=== PATIENT | male | born 1975 | race Caucasian/White ===

== ENCOUNTER 2018-05-30 16:59 | Emergency (ER) | payer SELFPAY ==
[~2018-05-30] VITALS: Ht 180.3 cm; Wt 74.8 kg
[2018-05-30 17:30] VITALS: BP 145/89
[2018-05-30] MEDS ORDERED: Tetanus/Diptheria/Pertussis Vaccine 0.5ml Syr IM ONE (17:30)
[2018-05-30] MEDS ORDERED: Bacitracin Oint UD TOPIC ONE (17:30)
--- NOTE | 2018-05-30 17:39 | Emergency Room Report ---
History of Present Illness General Chief Complaint: Laceration Source: Patient Present Illness HPI 43 YO Male presents to the ED c/o left wrist laceration. Tdap unk. cut but floor scraping tool. bleeding managed. not on blood thinning medications. Denies numbness tingling or loss of sensation or gross motor movements of the extremities, incontinence of bowel or bladder. Denies CP, Palpitations, LOC, AMS , dizziness, Changes in Vision, weakness or a sudden severe headache. denies Si/ HI or PSA's pt .reports 8/10 in severity pain, no weakness or inability to move fingers in affected hand, or make first. denies paresthesias. Allergies: Uncoded Allergies: POLLEN (Allergy, Unknown, 05/30/18) Patient History Past Medical History: see triage record Past Surgical History: none Pertinent Family History: none Reviewed Nursing Documentation: PMH: Agreed; PSxH: Agreed Nursing Documentation-PMH Past Medical History: No Stated History Review of Systems All Other Systems: negative except mentioned in HPI Physical Exam Vital Signs Date Time Temp Pulse Resp B/P (MAP) Pulse Ox O2 Delivery O2 Flow Rate FiO2 05/30/18 17:01 98.1 97 18 158/81 97 Room Air 98.1 Sp02 EP Interpretation: reviewed, normal General Appearance: no apparent distress, alert, GCS 15, non-toxic Head: normocephalic, atraumatic Eyes: bilateral eye normal inspection, bilateral eye PERRL ENT: hearing grossly normal, normal voice Neck: full range of motion Respiratory: lungs clear, normal breath sounds, speaking full sentences Cardiovascular #1: regular rate, rhythm Musculoskeletal: back normal, gait/station normal, normal range of motion, non- tender Neurologic: alert, oriented x3, responsive, motor strength/tone normal, sensory intact, speech normal, grossly normal Psychiatric: judgement/insight normal Skin: normal color, no rash, warm/dry, well hydrated, laceration - left wrist laceration approx 3.2 cm in length Lymphatic: no adenopathy Medical Decision Making PA Attestation Dr. gold is my supervising Physician whom patient management has been discussed with. Diagnostic Impression: Primary Impression: Laceration ER Course 43 YO Male presents to the ED c/o left wrist laceration. Tdap unk. cut but floor scraping tool. bleeding managed. not on blood thinning medications. Denies numbness tingling or loss of sensation or gross motor movements of the extremities, incontinence of bowel or bladder. Denies CP, Palpitations, LOC, AMS , dizziness, Changes in Vision, weakness or a sudden severe headache. Denies SI/ HI or PSA's. Ddx considered but are not limited to laceration, tendon injury, cellulitis, amputation Vital signs: are WNL, pt. is afebrile H&PE are most consistent with: left wrist laceration approx 3.2 cm in length ORDERS: none required at this time, the diagnosis is clinical ED INTERVENTIONS: -Tetanus vaccine was administered as pt. vaccination status was unknown. - The wound was copiously irrigated with normal saline, and explored for foreign body for which no FB was found. - pt. is anesthetized with 1%lidocaine - The wound was approximated and closed using [ ] interrupted [ ] Ethilon sutures. -Bacitracin and sterile dressing is applied. Discussed with patient: That we make every effort to approximate the laceration as best as we can so that scarring will be as cosmetically pleasing as possible with our limited cosmetic skill set in the Emergency dept. Regardless of our best efforts there will be scarring after laceration repair. The extent of scarring is unknown at this time. DISCHARGE: At this time pt. is stable for d/c to home. Will provide printed patient care instructions, and any necessary prescriptions. Care plan and follow up instructions have been discussed with the patient prior to discharge. Last Vital Signs Date Time Temp Pulse Resp B/P (MAP) Pulse Ox O2 Delivery O2 Flow Rate FiO2 05/30/18 17:01 98.1 97 18 158/81 97 Room Air 98.1 Disposition: HOME, SELF-CARE Condition: Stable Scripts Acetaminophen* (TYLENOL EXTRA STRENGTH*) 500 Mg Tablet 500 MG ORAL Q6H, #20 TAB 0 Refills Prov: Cyndy Velez 05/30/18 Bacitracin/Polymyxin B Sulfate (BACITRACIN-POLYMYXIN OINTMENT) 28.35 Gm Oint...g. 1 APPLIC TP BID, #22 GM Prov: Cyndy Velez 05/30/18 Cephalexin* (KEFLEX*) 500 Mg Capsule 500 MG ORAL EVERY 12 HOURS for 7 Days, #14 CAP 0 Refills Prov: Cyndy Velez 05/30/18 Patient Instructions: Laceration Care, Adult Additional Instructions: Take medications as directed. SUTURES SHOULD BE REMOVED IN 7-10 DAYS* Follow up with a Primary Care Provider in 3-5 days, even if your symptoms have resolved. --Please review list of primary care clinics, if you do not already have a primary care provider Return sooner to ED if new symptoms occur, or current symptoms become worse. - Please note that this Emergency Department Report was dictated using [employer] sawer technology software, occasionally this can lead to erroneous entry secondary to interpretation by the dictation equipment. Cyndy Velez May 30, 2018 17:39
[2018-05-30] MEDS ORDERED: Lidocaine 1% Plain 30 ml INJ ONE (17:45)
[2018-05-30] MEDS ORDERED: BACITRACIN-P28.35 GM TP (19:06)
[2018-05-30] MEDS ORDERED: TYLENOL EXTRA500 MG ORAL (19:06)
[2018-05-30] MEDS ORDERED: CEPHALEXIN500 MG ORAL (19:06)
[2018-05-30 19:15] VITALS: BP 134/79
[2018-05-30 19:16] VITALS: BP 134/79
== END 2018-05-30 19:16 | disposition home or self-care (01) ==
LOC: EMR 17:37
DX: S61.512A Laceration without foreign body of left wrist, initial encounter (principal); W27.8XXA Contact with other nonpowered hand tool, initial encounter; Y93.89 Activity, other specified; Y92.89 Other specified places as the place of occurrence of the external cause; Z23 Encounter for immunization
CPT/HCPCS: 12002; 90471; 90715; 99283; J2001